=== PATIENT | male | born 1995 | race Caucasian/White ===

== ENCOUNTER 2019-09-05 18:41 | Emergency (ER) | payer OTHER ==
[~2019-09-05] VITALS: Ht 170.2 cm; Wt 59.0 kg
--- NOTE | 2019-09-05 18:46 | NUR ---
Dr Jimenez is at bedside, MSE in progress, pending MD evaluation
[2019-09-05] MEDS ORDERED: DEXAMETHASONE SOD PHOSPHATE 10 MG INJ ONE ×2 (18:48→18:51)
[2019-09-05] MEDS ORDERED: diphenhydrAMINE 50 MG/1 ML VIAL ONE ×2 (18:48→18:51)
[2019-09-05] MEDS ORDERED: diphenhydrAMINE 50 MG/1 ML VIAL IV ONE (19:00)
[2019-09-05] MEDS ORDERED: DEXAMETHASONE SOD PHOSPHATE 4 MG INJ IV ONE (19:00)
--- NOTE | 2019-09-05 19:35 | NUR ---
Patient discharged to home in stable conditon. Written and verbal after care instructions given. Patient verbalizes understanding of instructions. Pt states he feels better. Pt appears in no apparent distress. Vital signs stable. Respirations even +unlabored.
[2019-09-05 19:37] VITALS: BP 146/77
== END 2019-09-05 19:45 | disposition home or self-care (01) ==
LOC: ER 18:41
DX: F41.9 Anxiety disorder, unspecified (principal); Z91.018 Allergy to other foods
CPT/HCPCS: 96374; 96375; 99283; J1100; J1200; A4663